=== PATIENT | male | born 1945 | race Caucasian/White ===

== ENCOUNTER → 2019-03-07 | Emergency (ER) | payer OTHER ==
[~2019-03-07] VITALS: Ht 172.7 cm; Wt 77.1 kg
[~2019-03-07] MED LIST: ASPIR 8181 MG; COZAAR100 MG; TOPROL XL25 M1
== END | disposition home or self-care (01) ==
LOC: ER 18:13
DX: S06.0X0A Concussion without loss of consciousness, initial encounter (principal); M25.521 Pain in right elbow; M54.2 Cervicalgia; R42 Dizziness and giddiness; W18.09XA Striking against other object with subsequent fall, initial encounter; Y93.89 Activity, other specified; Y92.89 Other specified places as the place of occurrence of the external cause; Y99.8 Other external cause status